=== PATIENT | male | born 1970 | race African-American/Black ===

== ENCOUNTER 2024-10-30 07:17 | Emergency (ER) | payer MEDICARE ==
[~2024-10-30] VITALS: Ht 160 cm; Wt 56.0 kg
[~2024-10-30 07:17] MED LIST: MOM MT; POLY17PO3 MT; SENN8.6T21 MT; SULF1TAB48 MT
[2024-10-30 07:26] VITALS: O2SAT 98
[2024-10-30 07:36] VITALS: BP 120/81; PULSE 70; RESP 20; TEMP 36.7; O2SAT 98
== END 2024-10-30 08:50 | disposition home or self-care (01) ==
LOC: ER 07:17
DX: K59.00 Constipation, unspecified (principal); F12.90 Cannabis use, unspecified, uncomplicated; Z79.899 Other long term (current) drug therapy
CPT/HCPCS: 99281; 99282